=== PATIENT | female | born 1975 | race Caucasian/White ===

== ENCOUNTER 2025-05-16 21:55 | Emergency (ER) | payer OTHER ==
[~2025-05-16] VITALS: Ht 157.5 cm; Wt 60.3 kg
[2025-05-16] MEDS ORDERED: oxyCODONE/APAP (5/325 MG) 1 UDTAB TABLET ONE (22:26)
[2025-05-16] MEDS: oxyCODONE/APAP (5/325 MG) 1 UDTAB TABLET PO ONE (22:29)
[2025-05-17 01:03] VITALS: BP 134/80; TEMP 98.4; O2SAT 93
== END 2025-05-17 01:03 ==
LOC: ER 21:59
DX: R51.9 Headache, unspecified (principal); R07.81 Pleurodynia; M25.561 Pain in right knee; Y04.8XXA Assault by other bodily force, initial encounter; Y93.89 Activity, other specified; Y92.89 Other specified places as the place of occurrence of the external cause; Y99.8 Other external cause status
CPT/HCPCS: 70450-TC; 70486-TC; 71100-TC; 73564-TC